=== PATIENT | female | born 1965 | race African-American/Black ===

== ENCOUNTER 2019-01-12 05:52 | Emergency (ER) | payer OTHER ==
[~2019-01-12] VITALS: Ht 157.5 cm; Wt 69.4 kg
[2019-01-12 05:58] VITALS: BP 215/127
--- NOTE | 2019-01-12 05:58 | NUR ---
ARRIVAL PATIENT PRESENTS WITH MULTIPLE COMPLAINTS INCLUDING HEADACHE, N/V, CHILLS, ABDOMINAL PAIN AND CHEST PAIN SINCE 0500. PATIENT STATES THAT MAIN COMPLAINT IS HEADACHE AND N/V. AMBULATORY WITH STEADY GAIT TO ROOM 4. FAMILY REPORTS THAT PATIENT'S BP WAS "REALLY HIGH" AT HOME. PATIENT RATES HEADACHE PAIN 8/10 AT THIS TIME. BP 215/127, DR VALDES NOTIFIED RIGHT AWAY. OTHER VITAL SIGNS ARE STABLE AT THIS TIME.
[2019-01-12] MEDS ORDERED: TRANDATE IV ONE (06:19)
[2019-01-12 06:21] VITALS: BP 186/109
--- NOTE | 2019-01-12 06:22 | ER.PDOC ---
General Chief Complaint: Headache Stated Complaint: VOMITING Time seen by MD: 06:15 Source: patient Exam Limitations: no limitations History of Present Illness Initial Comments Pt with headache and vomiting since yesterday at 10 PM, also nausea, vomiting abdominal pain and chest pain Timing/Duration: 24 hours Severity/Quality: severe, constant, sharp Prior Headaches/Recent Trauma: no recent headache/trauma, occasional headaches Associated Symptoms: nausea/vomiting Allergies: Coded Allergies: No Known Allergies (Unverified , 01/12/13) Past Medical History Medical History: hypertension, renal disease Surgical History: other Social History Smoking: non-smoker Alcohol Use: occassionally Drug Use: none Review of Systems Constitutional: see HPI Eyes: no symptoms reported Ears, Nose, Mouth, Throat: no symptoms reported Respiratory: no symptoms reported Cardiovascular: see HPI Gastrointestinal: see HPI Genitourinary: no symptoms reported Musculoskeletal: no symptoms reported Skin: no symptoms reported Psychiatric/Neurological: no symptoms reported All Other Systems: Reviewed and Negative Physical Exam General Appearance: No Apparent Distress, WD/WN Head/Eyes: eyes nml inspection, no facial swelling, no nystagmus, PERRL ENT: nml ENT inspection, pharynx nml Neck: nml inspection, Supple Cardiovascular: Normal Peripheral Pulses, Regular Rate, Rhythm, No Edema, No Gallop, No JVD, No Murmur Respiratory: chest non-tender, lungs clear, normal breath sounds, no respiratory distress, no accessory muscle use Gastrointestinal: Normal Bowel Sounds, No Organomegaly, No Pulsatile Mass, Soft, Tenderness (ep[igastrium, LUQ, LLQ) Back: Normal Inspection, No CVA Tenderness, No Vertebral Tenderness Extremities: Normal Range of Motion, Non-Tender, Normal Inspection, No Pedal Edema, No Calf Tenderness, Normal Capillary Refill Psychiatric: Alert, Oriented x 3 Cranial Nerves: Normal Hearing, Normal Speech, PERRL Coordination/Gait: Normal Finger to Nose, Normal Gait Motor/Sensory: No Motor Deficit, No Sensory Deficit, No Pronator Drift, Negative Babinski's Sign Skin: Warm/Dry, Normal Color Lymphatic: No Adenopathy Results/Orders Results/Orders Vital Signs Date Time Temp Pulse Resp B/P (MAP) Pulse Ox O2 Delivery O2 Flow Rate FiO2 01/12/19 06:21 107 18 186/109 (134) 100 Room Air 01/12/19 05:58 98.2 108 18 215/127 (156) 99 Room Air 01/12/19 05:58 98.2 108 18 01/12/19 05:58 98.2 108 18 99 Room Air Administered Medications Medications (Trade) Dose Ordered Sig/Sri Route PRN Reason Start Time Stop Time Status Last Admin Dose Admin Labetalol HCl (Trandate) 10 mg STAT PRN IV HYPERTENSION 01/12/19 06:30 02/11/19 06:29 01/12/19 06:29 10 MG Meperidine HCl (Demerol) 50 mg STAT STAT IV 01/12/19 06:51 01/12/19 06:52 DC 01/12/19 06:57 50 MG Ondansetron HCl (Zofran) 4 mg STAT STAT IV 01/12/19 06:23 01/12/19 06:29 DC 01/12/19 06:30 4 MG Sodium Chloride 1,000 ml @ 250 mls/hr Q4H STAT IV 01/12/19 06:23 01/12/19 10:22 01/12/19 06:42 250 MLS/HR Laboratory Tests Test 01/12/19 06:16 01/12/19 06:38 White Blood Count 9.5 10^3/uL (4.5-11.0) Red Blood Count 2.95 10^6/uL (4.00-5.20) L Hemoglobin 9.7 g/dL (12.0-15.0) L Hematocrit 28.3 % (36.0-46.0) L Mean Corpuscular Volume 95.9 fL (78-100) Mean Corpuscular Hemoglobin 32.9 pg (26-34) Mean Corpuscular Hemoglobin Concent 34.3 g/dL (33-37) Red Cell Distribution Width 13.9 % (11.5-14.5) Platelet Count 219 10^3/uL (150-400) Mean Platelet Volume 8.8 fL (7.8-11.0) Neutrophils (%) (Auto) 91.0 % (41.0-85.0) *H Lymphocytes (%) (Auto) 4.6 % (24.0-44.0) *L Monocytes (%) (Auto) 3.6 % (5.0-12.0) L Neutrophils # (Auto) 8.7 10^3/uL (1.8-7.7) H Lymphocytes # (Auto) 0.4 10^3/uL (1.0-4.8) L Monocytes # (Auto) 0.3 10^3/uL (0.3-0.8) Absolute Immature Granulocyte (auto 0.03 10^3 u/L (0-2) Immature Granulocytes % 0.30 % (0.00-0.50) Eosinophils % 0.0 % (0.0-5.0) Basophils % 0.5 % (0.0-0.2) H Basophils # 0.1 10^3/uL (0.0-0.1) Eosinophil Count 0.0 10^3/uL (0.0-0.2) Prothrombin Time 10.4 SEC (9.4-11.5) Prothrombin Time INR (Non-Therap) 1.0 Activated Partial Thromboplast Time 24.5 SEC (24.67-30.72) Sodium Level 139 mmol/L (132-145) Potassium Level 4.3 mmol/L (3.6-5.2) Chloride Level 100.0 mmol/L (96-109) Carbon Dioxide Level 13.0 mmol/L (20.0-32) L Anion Gap 30.3 Blood Urea Nitrogen 60 mg/dL (7-18) H Creatinine 4.95 mg/dL (0.59-1.40) *H Estimated GFR () 11.2 (>/=60) BUN/Creatinine Ratio 12.0 Glucose Level 77 mg/dL (70-110) Calcium Level 10.7 mg/dL (8.4-10.5) H Total Bilirubin 0.4 mg/dL (0.2-1.0) Aspartate Amino Transferase (AST) 58 U/L (0-35) H Alanine Aminotransferase (ALT) 25 U/L (12-78) Alkaline Phosphatase 119 U/L (50-136) Total Creatine Kinase 218 U/L (26-192) H Troponin I 0.05 ng/mL (0.00-0.05) Pro-B-Type Natriuretic Peptide 1304 pg/mL (0-125) H Total Protein 9.3 g/dL (6.4-8.2) H Albumin 4.7 g/dL (3.4-5.0) Globulin 4.6 Amylase Level 78 U/L (25-115) Lipase 163 U/L (114-286) Differential Total Cells Counted 100 #CELLS Segmented Neutrophils 92 % (31-76) H Lymphocytes 5 % (25-36) L Monocytes 3 % (3-9) Atypical Lymphocytes % Platelet Estimate ADEQUATE Platelet Morphology NORMAL Progress Progress Transferred care to [facility] at [address] Garcia director validation for Dr. Campoverde her Special Needs Teacher in [place] and she told me that her last creatinine in September was 3.0 and so needs to be admitted. EKG/XRAY/CT/US EKG: NSR XRAY: chest (No active disease) CT Comments: Nothing acute intracranially Course Sepsis Screening Results: Posi: POSITIVE SEPSIS RISK Vitals & review Data Vital Sign - Last 24 Hours 01/12/19 01/12/19 01/12/19 01/12/19 05:58 05:58 05:58 06:21 Temp 98.2 98.2 98.2 Pulse 108 108 108 107 Resp 18 18 18 18 B/P (MAP) 215/127 (156) 186/109 (134) Pulse Ox 99 99 100 O2 Delivery Room Air Room Air Room Air Laboratory Tests Test 01/12/19 06:16 01/12/19 06:38 White Blood Count 9.5 10^3/uL Red Blood Count 2.95 10^6/uL Hemoglobin 9.7 g/dL Hematocrit 28.3 % Mean Corpuscular Volume 95.9 fL Mean Corpuscular Hemoglobin 32.9 pg Mean Corpuscular Hemoglobin Concent 34.3 g/dL Red Cell Distribution Width 13.9 % Platelet Count 219 10^3/uL Mean Platelet Volume 8.8 fL Neutrophils (%) (Auto) 91.0 % Lymphocytes (%) (Auto) 4.6 % Monocytes (%) (Auto) 3.6 % Neutrophils # (Auto) 8.7 10^3/uL Lymphocytes # (Auto) 0.4 10^3/uL Monocytes # (Auto) 0.3 10^3/uL Absolute Immature Granulocyte (auto 0.03 10^3 u/L Immature Granulocytes % 0.30 % Eosinophils % 0.0 % Basophils % 0.5 % Basophils # 0.1 10^3/uL Eosinophil Count 0.0 10^3/uL Prothrombin Time 10.4 SEC Prothrombin Time INR (Non-Therap) 1.0 Activated Partial Thromboplast Time 24.5 SEC Sodium Level 139 mmol/L Potassium Level 4.3 mmol/L Chloride Level 100.0 mmol/L Carbon Dioxide Level 13.0 mmol/L Anion Gap 30.3 Blood Urea Nitrogen 60 mg/dL Creatinine 4.95 mg/dL Estimated GFR () 11.2 BUN/Creatinine Ratio 12.0 Glucose Level 77 mg/dL Calcium Level 10.7 mg/dL Total Bilirubin 0.4 mg/dL Aspartate Amino Transf (AST/SGOT) 58 U/L Alanine Aminotransferase (ALT/SGPT) 25 U/L Alkaline Phosphatase 119 U/L Total Creatine Kinase 218 U/L Troponin I 0.05 ng/mL Pro-B-Type Natriuretic Peptide 1304 pg/mL Total Protein 9.3 g/dL Albumin 4.7 g/dL Globulin 4.6 Amylase Level 78 U/L Lipase 163 U/L Differential Total Cells Counted 100 #CELLS Segmented Neutrophils 92 % Lymphocytes 5 % Monocytes 3 % Atypical Lymphocytes % Platelet Estimate ADEQUATE Platelet Morphology NORMAL Current Medications Medications (Trade) Dose Ordered Sig/Sri PRN Reason Start Time Stop Time Status Last Admin Labetalol HCl (Trandate) 10 mg STAT PRN HYPERTENSION 01/12/19 06:30 02/11/19 06:29 01/12/19 06:29 Sodium Chloride 1,000 ml @ 250 mls/hr Q4H STAT 01/12/19 06:23 01/12/19 10:22 01/12/19 06:42 Sepsis Infection Criteria Pres: None O2 Sat by Pulse Oximetry: 99 Departure Time of Disposition: 07:32 Disposition: 02 XFER [facility]M HOSP Impression: Primary Impression: Acute kidney failure, unspecified Additional Impression: Hypertensive crisis Condition: Stable Referrals: PCP,UNKNOWN (PCP) PRIMARY CARE PROVIDER Comments Transfer to [facility] ED for Dr. Smith Duration or Time Spent with Pa: 60 mins Problem Qualifiers Primary Impression: Acute kidney failure, unspecified Acute renal failure type: unspecified Qualified Codes: N17.9 - Acute kidney failure, unspecified EZEKIEL VALDES MD Jan 12, 2019 06:22 ANGELINA CHO MD Jan 12, 2019 07:36
[2019-01-12] MEDS ORDERED: ZOFRAN IV STA (06:23)
[2019-01-12] MEDS ORDERED: NS 1000ML 1,000 ML STA (06:23)
[2019-01-12] MEDS ORDERED: ZOFRAN ONE (06:26)
[2019-01-12] MEDS ORDERED: TRANDATE IV PRN (06:30)
[2019-01-12] MEDS ORDERED: NS 1000ML 1,000 ML ONE (06:30)
[2019-01-12 06:34] LABS: BASOPHIL # 0.1 10^3/uL (0.0-0.1); BASOPHIL % 0.5 % (0.0-0.2); HEMOGLOBIN 9.7 g/dL (12.0-15.0); LYMPHOCYTES # 0.4 10^3/uL (1.0-4.8); LYMPHOCYTES % 4.6 % (24.0-44.0); MEAN CELL HGB 32.9 pg (26-34); MEAN CELL HGB CONCENTRATION 34.3 g/dL (33-37); MEAN CORP VOLUME 95.9 fL (78-100); MEAN PLATELET VOLUME 8.8 fL (7.8-11.0); MONOCYTES # 0.3 10^3/uL (0.3-0.8); MONOCYTES % 3.6 % (5.0-12.0); NEUTROPHIL # 8.7 10^3/uL (1.8-7.7); RED CELL DISTRIBUTION WIDTH 13.9 % (11.5-14.5); WHITE BLOOD CELL 9.5 10^3/uL (4.5-11.0)
--- NOTE | 2019-01-12 06:35 | NUR ---
RAD PT TO RAD FOR CT. CARE ASSUMED OF PT. PT ALERT AND COOP. NO ACUTE DISTRESS
--- NOTE | 2019-01-12 06:35 | NUR ---
CT PT TO CT.
[2019-01-12] MEDS ORDERED: DEMEROL IV STA (06:51)
[2019-01-12] MEDS ORDERED: DEMEROL ONE (06:51)
[2019-01-12 06:58] LABS: CALCIUM 10.7 mg/dL (8.4-10.5)
--- NOTE | 2019-01-12 07:00 | DIREP ---
PROCEDURE:CHEST 1 VIEW COMPARISON:None. INDICATIONS:CP FINDINGS: LUNGS/PLEURA:Lungs are clear of focal consolidation. No evidence of pleural effusion. VASCULATURE:Unremarkable pulmonary vasculature. CARDIAC:No cardiac silhouette abnormality or cardiomegaly. MAEGAN/MEDIASTINUM:No visible mass or adenopathy. BONES:No acute fracture. OTHER:No additional findings. CONCLUSION: 1. No acute cardiopulmonary changes. Dictated by: Good Jhaveri M.D. on 01/12/2019 at 06:58 AM
--- NOTE | 2019-01-12 07:04 | DIREP ---
PROCEDURE:CT HEAD OR BRAIN W/O CONTRAST COMPARISON:None. INDICATIONS:Headache TECHNIQUE:CT images were created without intravenous contrast. FINDINGS: VENTRICLES: Negative. CEREBRUM: Negative. CEREBELLUM: Negative. BRAINSTEM: Negative. BASAL CISTERNS: Negative. SKULL: Negative. SINUSES: Negative. OTHER: None. CONCLUSION: 1. There is no CT evidence of intracranial mass, hemorrhage, or acute infarct. Dictated by: Good Jhaveri M.D. on 01/12/2019 at 07:02 AM
[2019-01-12 07:11] LABS: LYMPHOCYTE 5 % (25-36); MONOCYTE 3 % (3-9); SEGMENTED NEUTROPHILS 92 % (31-76)
[2019-01-12 07:30] VITALS: BP 187/109
--- NOTE | 2019-01-12 07:30 | NUR ---
[facility] INDWELLING [facility] CATH PLACED USING STERILE TECHNIQUE. PT COOP T/O PROCEDURE. NO ADVERSE REACTION NOTED
--- NOTE | 2019-01-12 07:32 | NUR ---
TRANSFER DR CHO SECURED TRANSFER TO [facility] WITH DR IBARRA
--- NOTE | 2019-01-12 07:55 | NUR ---
CONSULT DR CHO SPEAKING WITH PTS AIR QUALITY SPECIALIST TO DISCUSS CREATNINE LEVEL AND NEED FOR TRANSFER
--- NOTE | 2019-01-12 08:03 | NUR ---
TRANSFER DISPATCH CALLED FOR TRANSFER TO [facility]
[2019-01-12 08:30] VITALS: BP 167/85
--- NOTE | 2019-01-12 08:50 | NUR ---
ASSESS PT RESTING QUIETLY WITH EYES CLOSED. NO OUTWARD SIGNS OF PAIN NOTED.
--- NOTE | 2019-01-12 09:11 | NUR ---
TRANSFER PT CARE TRANSFERRED TO [facility]. PT ALERT AND COOP. NO ACUTE DISTRESS. 400ML PALE CLEAR URINE EMPTIED FROM [facility]
--- NOTE | 2019-01-12 09:18 | NUR ---
REPORT REPORT GIVEN TO CRISTIANO MUNOZ RN
[2019-01-12 09:23] VITALS: BP 167/85
== END 2019-01-12 09:25 | disposition short-term general hospital (02) ==
LOC: ER 05:52
DX: N17.9 Acute kidney failure, unspecified (principal); I16.0 Hypertensive urgency
CPT/HCPCS: 36415; 51702; 70450; 71045; 80053; 82150; 82550; 83690; 83880; 84484; 85025; 85610; 85730; 96361; 96374; 96375; 99285; J2175; J2405; J7030; 93005; J3490